=== PATIENT | male | born 1955 | race Two or more races ===

== ENCOUNTER 2020-12-12 23:23 | Emergency (ER) | payer OTHER ==
[~2020-12-12] VITALS: Ht 167.6 cm; Wt 79.4 kg
[2020-12-13] MEDS ORDERED: VITAMIN C100 MG (00:38)
[2020-12-13] MEDS ORDERED: ZITHROMAX500 MG PO (03:40)
[2020-12-13] MEDS ORDERED: DECADRON6 MG PO (03:40)
[2020-12-13] MEDS ORDERED: ZYNCOF 20-400120 ML PO ×2 (03:40)
[2020-12-13] MEDS ORDERED: IVERMECTIN3 MG PO (03:40)
== END 2020-12-13 03:54 | disposition home or self-care (01) ==
LOC: ER 23:23
DX: U07.1 COVID-19 (principal); J12.82 Pneumonia due to coronavirus disease 2019